=== PATIENT | female | born 1985 | race Caucasian/White ===

== ENCOUNTER → 2019-12-19 | Outpatient (CLI) | payer OTHER ==
[~2019-12-19] MED LIST: AC325T PO; AMIT10TA6 PO; AMIT25TA9 PO; CITA10TA70 PO; CYCL10TA9 PO; DESV50TA PO; FRS325T PO; GABA-488 PO; GEMF600T PO; HYDR-700 PO; HYDR25CA92 PO; IBP600T1 PO; IBUP-30 PO; LISI10TA2 PO; MULT-35 PO; NORG1TAB31 PO; OXYC-12 PO; PREN1TAB39 PO; SUMA100T2 PO; TRM50T PO
--- NOTE | 2019-12-19 11:03 | Diagnostic Imaging Report ---
PROCEDURE: US OB SINGLE FETUS <14 WKS. TECHNIQUE: Multiple real-time grayscale images were obtained over the gravid uterus in various projections. INDICATION: Uncertain dates There are no prior studies available for comparison. There is a gestational sac within the uterus containing a single live fetus. heart motion was noted and a rate of 167 BPM was recorded. The crown-rump length suggests the estimated gestational age is 12 weeks 3 days +/- 1 week. There were no obvious abnormalities identified. However, if more sensitive evaluation of the anatomy is desired, then follow-up exam in 6-8 weeks would be recommended. The amniotic fluid volume is within normal limits. The placenta appears to be developing posteriorly and on the right lateral aspect of the gestational sac. The left ovary was identified and was generally unremarkable. The right ovary could not be visualized. There is no pelvic mass or free fluid collection evident. IMPRESSION: 1. There is a single live fetus at approximately 12 weeks 3 days gestation +/- 1 week. The EDC is 06/29/2020. 2. There are no obvious abnormalities identified. Recommendations as above. 3. There is no pelvic mass or free fluid collection evident. Dictated by: Dictated on workstation # [id number]
== END ==
LOC: RAD 08:57
PROVIDERS: ATTEND Family Medicine
DX: Z36.89 Encounter for other specified antenatal screening (principal); Z3A.12 12 weeks gestation of pregnancy
CPT/HCPCS: 76801

== ENCOUNTER → 2020-02-13 | Outpatient (CLI) | payer OTHER ==
--- NOTE | 2020-02-13 15:33 | Diagnostic Imaging Report ---
INDICATION: survey TECHNIQUE: Multiple real-time grayscale images were obtained over the gravid uterus. COMPARISON: 12/19/2019 FINDINGS: The prior exam of 12/19/2019 noted a single live fetus approximately 12 weeks 3 days gestation. On this exam, the fetus is again visualized. The fetus is in variable presentation. At the end of the exam, the fetus was cephalic however. heart motion was noted and a rate of 149 BPM was recorded. There were no abnormalities noted. The growth parameters are fairly uniform and have progressed as expected since the prior study. The amniotic fluid volume is within normal limits. The placenta is anterior and there is no previa. The cervix was identified and measures 4.1 cm in length. Biometrical measurements are as follows: Biparietal 4.88 cm, age 20 weeks 6 days. Head circumference 17.71 cm, age 20 weeks 2 days. Abdominal circumference 16.15 cm, age 21 weeks 2 days. Femur length 3.01 cm, age 19 weeks 3 days. Sonographic estimate age: 20 weeks 4 days. Sonographic estimated date of delivery: 06/28/2020. Estimated Weight: 348 gm (+/- 51 gm). LMP percentile: 41%. heart rate: 149 beats per minute. number: 1 of 1. IMPRESSION: 1. There is a single live fetus approximately 20 weeks 3 days gestation plus or minus 1 week. The EDC remains 06/29/2020. 2. There were no abnormalities identified. 3. The growth parameters have progressed as expected since the prior exam. Dictated by: Dictated on workstation # [id number]
== END ==
LOC: RAD 13:00
PROVIDERS: ATTEND Family Medicine
DX: Z34.92 Encounter for supervision of normal pregnancy, unspecified, second trimester (principal); Z3A.20 20 weeks gestation of pregnancy
CPT/HCPCS: 76805

== ENCOUNTER 2020-06-23 02:03 | Inpatient (IN) | payer MEDICAID, OTHER ==
[~2020-06-23] VITALS: Ht 157.5 cm; Wt 71.9 kg
[2020-06-23] VITALS (27 sets, daily range): BP systolic 121–170; BP diastolic 63–115
[2020-06-23] MEDS ORDERED: D5 LR IV SOLUTION 1,000 ML IV ONE (02:37)
--- NOTE | 2020-06-23 06:12 | NUR ---
ELLA CHARLTON presented to unit via W/C from ED, accompanied by SO, with c/o INDUCTION. ELLA CHARLTON weighed, gowned, voided, and to bed. EF and TOCO applied, VS taken. ELLA CHARLTON oriented to bed controls, call light, TV, heat, and A/C controls.
[2020-06-23] MEDS ORDERED: OMEP10CA5 PO (06:21)
[2020-06-23] MEDS ORDERED: MINERAL OIL CONCENTRATE 99.9% 15 ML UDC TOP PRN (06:30)
[2020-06-23] MEDS ORDERED: MEPIVACAINE (CARBOCAINE) 2% 50 ML VIAL INJ PRN (06:30)
[2020-06-23] MEDS ORDERED: D5 LR IV SOLUTION 1,000 ML IV SCH (06:30)
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
[2020-06-23 07:14] LABS: BASOPHILS # (AUTO) 0.1 10^3/uL (0.0-0.1); BASOPHILS % (AUTO) 0 % (0-10); EOSINOPHILS # (AUTO) 0.2 10^3/uL (0.0-0.3); EOSINOPHILS % (AUTO) 1 % (0-10); HEMATOCRIT 34 % (35-52); HEMOGLOBIN 10.9 g/dL (11.5-16.0); LYMPHOCYTES # (AUTO) 2.2 10^3/uL (1.0-4.0); LYMPHOCYTES % (AUTO) 13 % (12-44); MEAN CORPUSCULAR HEMOGLOBIN 30 pg (25-34); MEAN CORPUSCULAR HGB CONC 32 g/dL (32-36); MEAN CORPUSCULAR VOLUME 92 fL (80-99); MEAN PLATELET VOLUME 10.1 fL (9.0-12.2); MONOCYTES # (AUTO) 0.9 10^3/uL (0.0-1.0); MONOCYTES % (AUTO) 6 % (0-12); NEUTROPHILS # (AUTO) 13.2 10^3/uL (1.8-7.8); NEUTROPHILS % (AUTO) 78 % (42-75); PLATELET COUNT 324 10^3/uL (130-400)
--- NOTE | 2020-06-23 07:15 | NUR ---
Report received from Edgardo Dye RN.
[2020-06-23 08:27] LABS: BAND NEUTROPHILS 1 %; BASOPHILS % (MANUAL) 0 %; EOSINOPHILS % (MANUAL) 3 %; LYMPHOCYTES % (MANUAL) 17 %; MONOCYTES % (MANUAL) 6 %; NEUTROPHILS % (MANUAL) 73 %
[2020-06-23 08:28] LABS: RBC MORPH NORMAL
[2020-06-23] MEDS ORDERED: OXYTOCIN PRE-MIX DRIP 500 ML IV ONE (08:28)
[2020-06-23] MEDS ORDERED: OXYTOCIN PRE-MIX DRIP 500 ML IV SCH ×3 (08:30→12:45)
[2020-06-23] MEDS: BUTORPHANOL INJ 2 MG/ML (STADOL) VIAL IV PRN ×2 (08:54→10:37)
[2020-06-23] MEDS: CATHETER FLUSH 10 ML SYR IV SCH ×4 (08:55→22:00)
--- NOTE | 2020-06-23 12:31 | OB Labor & Delivery Record ---
L&D History Date of Service Date of Service: Jun 23, 2020 History Expected Date of Delivery: Jun 28, 2020 Gestational Age in Weeks: 39 Hx : 6 Hx Para: 5 Complications Events: Routine care Operative Indications (Cesarea: N/A-Vaginal Delivery Intrapartal Events: None L&D Stage1 Stage One Onset of Labor - Date: Jun 23, 2020 Onset of Labor - Time: 06:39 Monitors and Tracing Monitor Mode: Internal Heart Rate: 125 Monitor Accelerations: Uniform Monitor Decelerations: Variable Station: -2 Service Engine Repairer Variability: Average (6-10) Short Term Variability: Present Presentation: Vertex Vital Signs VS - Last 72 Hours, by Label 06/23/20 06/23/20 06/23/20 06/23/20 06:23 06:46 07:30 08:00 Temp 36.3 36.3 36.8 Pulse 110 110 96 86 Resp 20 20 18 18 B/P (MAP) 134/94 (107) 145/95 (112) 141/86 (104) Pulse Ox 100 100 O2 Delivery Room Air Room Air Room Air Room Air 06/23/20 06/23/20 06/23/20 06/23/20 08:30 08:45 09:00 09:15 Temp 36.5 Pulse 93 100 94 94 Resp 18 18 18 18 B/P (MAP) 121/69 (86) 141/91 (108) 134/73 (93) 129/74 (92) O2 Delivery Room Air Room Air Room Air Room Air 06/23/20 06/23/20 06/23/20 06/23/20 09:30 09:45 10:00 10:15 Pulse 84 88 85 84 Resp 18 18 18 18 B/P (MAP) 122/78 (93) 134/84 (101) 139/72 (94) 128/69 (88) O2 Delivery Room Air Room Air Room Air Room Air 06/23/20 06/23/20 06/23/20 10:30 10:45 11:00 Temp 36.2 Pulse 85 85 96 Resp 18 18 18 B/P (MAP) 140/85 (103) 139/83 (101) 143/101 (115) O2 Delivery Room Air Room Air Room Air Signs of Distress by FHT Signs of Distress No Rupture of Membranes Spontaneous Ruture of Membrane: No Amniotic Membrane Rupture Time: 0639 Amniotic Membrane Fluid Desc.: Meconium Stained Vaginal Bleeding Description: None Induction/Anesthesia Medications stadol 1mg x 2 doses L&D Stage2 Stage Two Stage II Date: Jun 23, 2020 Stage II Time: 12:14 Monitors and Tracing Monitor Mode: Internal Heart Rate: 125 Monitor Accelerations: Uniform Monitor Decelerations: Early Service Engine Repairer Variability: Average (6-10) Short Term Variability: Present Position: Left Occiput Anterior Presentation: Vertex Signs of Distress by FHT Signs of Distress no Cord Descript/Complications Cord Vessel Description: 3 Vessels Delivery Type Infant Delivery Method: Spontaneous Vaginal Anterior Shoulder: Left Episiotomy/Perineal Laceration Laceraction(s)/Extensions: No Condition of Delivery 1 minute Comment: 8 5 minute Comment: 9 Condition of Condition of : Living Exam: No Observed Abnormalities Resuscitation Resuscitation: N/A - Spontaneous Resp L&D Stage3 Stage Three Stage III Date: Jun 23, 2020 Stage III Time: 12:18 Pictocin Pitocin Administration mu/min: 2 Pitocin ml/hr: 2 Pitocin Administration Comment: Pitocin started per protocol. Placenta Delivery Placenta Delivery: Spontaneous Delivery Summary Summary Estimated blood loss (mL): 200 Condition of Delivery Examined: Cervix Examined Post Hemorrhage: No Intervention Required none PERI MANLEY MD Jun 23, 2020 12:31
[2020-06-23] MEDS ORDERED: TETANUS,DIPTH,PERTUSS P/F (BOOSTRIX) 0.5 ML VIAL IM ONE (12:45)
[2020-06-23] MEDS ORDERED: MEASLES,MUMPS,RUBELLA 1 EA INJ SQ ONE (12:45)
[2020-06-23] MEDS ORDERED: WITCH HAZEL(TUCKS) 40 EA JAR TOP PRN (12:45)
[2020-06-23] MEDS ORDERED: BENZOCAINE/MENTHOL (DERMOPLAST) 60 ML CAN TP PRN (12:45)
[2020-06-23] MEDS ORDERED: ACETAMINOPHEN 500 MG TAB (TYLENOL) PO PRN (13:15)
[2020-06-23] MEDS: IBUPROFEN 600 MG (MOTRIN) TAB PO SCH ×2 (13:43→20:24)
--- NOTE | 2020-06-23 14:35 | NUR ---
Fundus firm U/2 with moderate rubra lochia noted. No clots. Pericare completed. Patient up to restroom, + void noted, clean pad and panties applied. Patient transferred to room 311 via wheelchair. Patient oriented to room and plan of care reviewed. Patient verbalizes understanding and questions answered.
[2020-06-23] MEDS ORDERED: ACETAMINOPHEN 500 MG TAB (TYLENOL) PO SCH (18:00)
[2020-06-23] MEDS ORDERED: IBUPROFEN 600 MG (MOTRIN) TAB PO SCH (18:00)
[2020-06-23] MEDS: DOCUSATE SODIUM 100 MG (COLACE) CAP PO SCH (20:24)
[2020-06-24] VITALS: BP 132/77
[2020-06-24] MEDS: IBUPROFEN 600 MG (MOTRIN) TAB PO SCH ×2 (01:52→10:12)
[2020-06-24 04:00] VITALS: BP 141/80
[2020-06-24 05:33] LABS: BASOPHILS % (AUTO) 0 % (0-10); EOSINOPHILS # (AUTO) 0.2 10^3/uL (0.0-0.3); EOSINOPHILS % (AUTO) 1 % (0-10); HEMATOCRIT 30 % (35-52); HEMOGLOBIN 9.6 g/dL (11.5-16.0); LYMPHOCYTES # (AUTO) 2.2 10^3/uL (1.0-4.0); LYMPHOCYTES % (AUTO) 13 % (12-44); MEAN CORPUSCULAR HEMOGLOBIN 29 pg (25-34); MEAN CORPUSCULAR HGB CONC 32 g/dL (32-36); MEAN CORPUSCULAR VOLUME 92 fL (80-99); MEAN PLATELET VOLUME 9.7 fL (9.0-12.2); MONOCYTES # (AUTO) 0.9 10^3/uL (0.0-1.0); MONOCYTES % (AUTO) 5 % (0-12); NEUTROPHILS % (AUTO) 80 % (42-75); PLATELET COUNT 281 10^3/uL (130-400); WHITE BLOOD COUNT 17.6 10^3/uL (4.3-11.0)
--- NOTE | 2020-06-24 06:56 | Discharge Summary ---
Diagnosis/Chief Complaint Date of Admission Jun 23, 2020 at 06:00 Date of Discharge June 24, 2020 Discharge Date: Jun 24, 2020 Discharge Time: 13:00 Admission Diagnosis Admission Diagnosis 1. Intrauterine at 39 weeks gestation 2. Anemiairon deficiency Discharge Diagnosis 1. Intrauterine at 39 weeks gestation 2. Anemiairon deficiency Reason Hospital Visit 35-year-old 6 now term 6 who initially presented to labor and delivery in the morning of June 23, 2020 for induction of labor at 39 weeks 2 days gestation. Her EDC is June 28, 2020. Her care was began in first trimester and essentially unremarkable. Discharge Summary-OBS Procedures 1. Spontaneous vaginal delivery Discharge Physical Examination Allergies: Coded Allergies: No Known Drug Allergies (Unverified , 06/22/12) Vitals & I&Os Vital Signs Date Time Temp Pulse Resp B/P (MAP) Pulse Ox O2 Delivery O2 Flow Rate FiO2 06/24/20 04:00 36.0 84 16 141/80 (100) 98 Room Air General Appearance: No Acute Distress Respiratory: Clear to Auscultation Cardiovascular: Regular Rate Abdominal: Soft (with uterus firm) Hospital Course Was the Problem List Reviewed?: Yes patient was admitted during the morning of June 23, 2020 for induction of labor. She underwent amniotomy with placement of scalp electrode. Later in the morning of was noted there was meconium-stained fluid. Strip remained reactive throughout the course of labor. She did not request epidural. She was given Stadol 1 mg twice during the course of labor for pain relief. Ultimately she went on to completion and delivered a term viable male with Apgars of 8 at 1 minute and 9 at 5 minutes. Following delivery she underwent routine care orders. She had no complications during the remainder of hospital stay. Her hemoglobin day after delivery was 9.6 compared to 10.9 on admission. She was without significant cramping in the morning of June 24, 2020. She was tolerating regular diet. She was eager for home dismissal in the afternoon of June 24, 2020. Pending Labs Laboratory Tests 06/24/20 05:10: White Blood Count 17.6, Red Blood Count 3.26, Hemoglobin 9.6, Hematocrit 30, Mean Corpuscular Volume 92, Mean Corpuscular Hemoglobin 29, Mean Corpuscular Hemoglobin Concent 32, Red Cell Distribution Width 14.0, Platelet Count 281, Mean Platelet Volume 9.7, Immature Granulocyte % (Auto) 1, Neutrophils (%) (Auto) 80, Lymphocytes (%) (Auto) 13, Monocytes (%) (Auto) 5, Eosinophils (%) (Auto) 1, Basophils (%) (Auto) 0, Neutrophils # (Auto) 14.0, Lymphocytes # (Auto) 2.2, Monocytes # (Auto) 0.9, Eosinophils # (Auto) 0.2, Basophils # (Auto) 0.0, Immature Granulocyte # (Auto) 0.2 Discharge Instructions to patient/family Please see electronic discharge instructions given to patient. Discharge Medications Reviewed and agree with Discharge Medication list on patient's Discharge Instruction sheet PERI MANLEY MD Jun 24, 2020 06:56
--- NOTE | 2020-06-24 06:59 | Discharge Inst-Women's Service ---
Discharge Inst-Women's Serv Depart Medication/Instructions New, Converted or Re-Newed RX: Other Instructions May take ibuprofen 200 mg tablets [id number]. May take 2 or 3 ibuprofen every 6 hours as needed for cramps. Problems Reviewed?: Yes Consults/Follow Up Additional Follow Up: Yes (Dr Manley in 6 weeks) Activity Driving Instructions: You May Drive Nothing Inside Vagina: No [place] (for 6 weeks) Diet Discharge Diet: Regular Diet Return to The Hospital For: as below Symptoms to Report to : Bleeding Excessive, Fever Over 101 Degrees F, Vaginal Discharge Foul For Any Problems or Questions: Contact Your Physician PERI MANLEY MD Jun 24, 2020 06:59
[2020-06-24] MEDS: DOCUSATE SODIUM 100 MG (COLACE) CAP PO SCH (10:12)
--- NOTE | 2020-06-24 10:14 | NUR ---
Initial shift assessment completed, see interventions for further.
[2020-06-24 11:00] VITALS: BP 141/100
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
--- NOTE | 2020-06-24 13:26 | NUR ---
dismissal instructions given, verbalizes understanding. reviewed OTC medications and administration schedule. instructed pt to schedule 6 week PP appointment. signature page signed, placed on chart.
--- NOTE | 2020-06-24 15:20 | NUR ---
pt dismissed to private vehicle via w/c with on lap. staff @ side. secured in rear facing car seat. pt stable with no sx's of distress noted.
== END 2020-06-24 15:20 | disposition home or self-care (01) | DRG 807 ==
LOC: LDRP 06:00
PROVIDERS: ADMIT Family Medicine; ATTEND Family Medicine
PROC: 10E0XZZ Delivery of Products of Conception, External Approach (ICD-10-PCS; principal; 2020-06-23)
PROC: 10907ZC Drainage of Amniotic Fluid, Therapeutic from Products of Conception, Via Natural or Artificial Opening (ICD-10-PCS; 2020-06-23)
DX: O99.02 Anemia complicating childbirth (principal); Z37.0 Single live birth; Z3A.39 39 weeks gestation of pregnancy; D50.9 Iron deficiency anemia, unspecified; Z20.822 Contact with and (suspected) exposure to COVID-19
CPT/HCPCS: 36415; 85007; 85025; 85027; 86850; 86900; 86901; 87635

== ENCOUNTER 2021-10-25 06:00 | Inpatient (IN) | payer MEDICAID, OTHER ==
[2021-10-25] VITALS (36 sets, daily range): BP systolic 123–178; BP diastolic 60–115
[~2021-10-25] VITALS: Ht 157.5 cm; Wt 74.5 kg
[~2021-10-25 06:00] MED LIST changes: -AMIT10TA6 PO; +AMT10T PO; -LISI10TA2 PO; +LISI10TA25 PO; +OMEP10CA5 PO
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
[2021-10-25] MEDS ORDERED: DULO30CA49 PO (06:44)
[2021-10-25] MEDS ORDERED: D5 LR IV SOLUTION 1,000 ML IV SCH (06:45)
[2021-10-25] MEDS ORDERED: OXYTOCIN PRE-MIX DRIP 500 ML IV SCH ×2 (06:45→11:45)
[2021-10-25] MEDS ORDERED: MINERAL OIL 30 ML TOP PRN (06:45)
[2021-10-25 07:04] LABS: BASOPHILS % (AUTO) 0 % (0-10); EOSINOPHILS # (AUTO) 0.2 10^3/uL (0.0-0.3); EOSINOPHILS % (AUTO) 2 % (0-10); HEMATOCRIT 37 % (35-52); HEMOGLOBIN 12.4 g/dL (11.5-16.0); LYMPHOCYTES # (AUTO) 2.4 10^3/uL (1.0-4.0); LYMPHOCYTES % (AUTO) 20 % (12-44); MEAN CORPUSCULAR HEMOGLOBIN 32 pg (25-34); MEAN CORPUSCULAR HGB CONC 34 g/dL (32-36); MEAN CORPUSCULAR VOLUME 96 fL (80-99); MEAN PLATELET VOLUME 10.2 fL (9.0-12.2); MONOCYTES # (AUTO) 0.6 10^3/uL (0.0-1.0); MONOCYTES % (AUTO) 5 % (0-12); NEUTROPHILS # (AUTO) 8.7 10^3/uL (1.8-7.8); NEUTROPHILS % (AUTO) 72 % (42-75); PLATELET COUNT 299 10^3/uL (130-400); WHITE BLOOD COUNT 12.1 10^3/uL (4.3-11.0)
[2021-10-25] MEDS ORDERED: fentaNYL 2 mcg/ml BUPIVA 0.125 100 ML ONE (07:51)
[2021-10-25] MEDS ORDERED: BUTORPHANOL INJ 2 MG/ML (STADOL) VIAL IV ONE (08:15)
[2021-10-25] MEDS ORDERED: BUPIVACAINE 0.25% 10 ML (SENSORCAINE) VIAL ONE (08:38)
[2021-10-25] MEDS ORDERED: fentaNYL INJ 100 MCG/2 ML AMP ONE (08:38)
[2021-10-25] MEDS ORDERED: ONDANSETRON 4 MG/2 ML (SDV) Z0FRAN IV PRN (09:15)
[2021-10-25] MEDS ORDERED: LACTATED RINGERS 1,000 ML IV ONE ×2 (09:15)
[2021-10-25] MEDS ORDERED: fentaNYL 2 mcg/ml BUPIVA 0.125 100 ML EPI PRN (09:15)
[2021-10-25] MEDS ORDERED: EPIDURAL (fentaNYL 2 MCG/ML BUPIVA 0.125%)100 ML BAG EPI PRN (09:15)
[2021-10-25] MEDS ORDERED: NALOXONE 0.4 MG/ML 1 ML (NARCAN) VIAL IV PRN ×2 (09:15→11:45)
[2021-10-25] MEDS ORDERED: fentaNYL INJ 100 MCG/2 ML AMP INJ ONE (09:15)
[2021-10-25] MEDS ORDERED: MEPIVACAINE (CARBOCAINE) 2% 50 ML VIAL ONE (10:42)
[2021-10-25] MEDS ORDERED: BENZOCAINE/MENTHOL (DERMOPLAST) 56 ML CAN TP PRN (11:45)
[2021-10-25] MEDS ORDERED: WITCH HAZEL(TUCKS) 40 EA JAR TOP PRN (11:45)
[2021-10-25] MEDS ORDERED: MEASLES,MUMPS,RUBELLA 1 EA INJ SQ ONE (11:45)
[2021-10-25] MEDS ORDERED: TETANUS,DIPTH,PERTUSS P/F (BOOSTRIX) 0.5 ML VIAL IM ONE (11:45)
--- NOTE | 2021-10-25 11:45 | OB Labor & Delivery Record ---
L&D History Date of Service Date of Service: Oct 25, 2021 History Expected Date of Delivery: Oct 31, 2021 Gestational Age in Weeks: 39 Hx : 7 Hx Para: 7 Complications Events: Routine care Operative Indications (Cesarea: N/A-Vaginal Delivery Intrapartal Events: None L&D Stage1 Stage One Onset of Labor - Date: Oct 25, 2021 Onset of Labor - Time: 06:39 Monitors and Tracing Monitor Mode: Internal Heart Rate: 120 Monitor Accelerations: Uniform Monitor Decelerations: None Station: -3 Prison Variability: Average (6-10) Short Term Variability: Present Presentation: Vertex Vital Signs VS - Last 72 Hours, by Label 10/25/21 10/25/21 10/25/21 10/25/21 06:50 06:50 07:50 08:05 Temp 36.6 36.6 Pulse 83 83 75 85 Resp 20 20 20 20 B/P (MAP) 146/84 (104) 133/82 (99) 140/79 (99) Pulse Ox 98 98 O2 Delivery Room Air Room Air Room Air Room Air 10/25/21 10/25/21 10/25/21 10/25/21 08:20 08:35 08:48 08:53 Pulse 85 100 94 89 Resp 20 20 20 20 B/P (MAP) 128/73 (91) 167/91 (116) 151/84 (106) 142/85 (104) Pulse Ox 98 99 O2 Delivery Room Air Room Air Room Air Room Air 10/25/21 10/25/21 10/25/21 10/25/21 08:56 08:59 09:00 09:03 Pulse 93 85 89 84 Resp 20 20 20 20 B/P (MAP) 143/92 (109) 142/78 (99) 156/83 (107) 159/70 (99) Pulse Ox 99 98 98 98 O2 Delivery Room Air Room Air Room Air Room Air 10/25/21 10/25/21 10/25/21 10/25/21 09:06 09:08 09:11 09:14 Pulse 89 90 90 81 Resp 20 20 20 20 B/P (MAP) 148/74 (98) 130/66 (87) 139/98 (112) 149/103 (118) Pulse Ox 98 98 98 98 O2 Delivery Room Air Room Air Room Air Room Air 10/25/21 10/25/21 10/25/21 10/25/21 09:17 09:22 09:35 09:38 Temp 36.0 Pulse 80 80 77 87 Resp 20 20 20 20 B/P (MAP) 143/76 (98) 144/86 (105) 136/84 (101) 137/95 (109) Pulse Ox 98 97 97 98 O2 Delivery Room Air Room Air Room Air Room Air 10/25/21 10/25/21 10/25/21 10/25/21 09:45 09:50 09:55 10:00 Pulse 81 76 75 76 Resp 20 20 20 20 B/P (MAP) 136/92 (107) 158/87 (110) 156/75 (102) 141/92 (108) Pulse Ox 99 98 98 98 O2 Delivery Room Air Room Air Room Air Room Air Signs of Distress by FHT Signs of Distress no Rupture of Membranes Spontaneous Ruture of Membrane: No Amniotic Membrane Rupture Time: 0639 Amniotic Membrane Fluid Desc.: Meconium Stained Vaginal Bleeding Description: None Induction/Anesthesia Epidural Cath Placement - Time: 850 L&D Stage2 Stage Two Stage II Date: Oct 25, 2021 Stage II Time: 11:01 Monitors and Tracing Monitor Mode: Internal Heart Rate: 120 Monitor Accelerations: Uniform Monitor Decelerations: None Painter Maintenance Variability: Average (6-10) Short Term Variability: Present Position: Left Occiput Anterior Presentation: Vertex Signs of Distress by FHT Signs of Distress no Cord Descript/Complications Cord Vessel Description: 3 Vessels Delivery Type Infant Delivery Method: Spontaneous Vaginal Anterior Shoulder: Left Episiotomy/Perineal Laceration Laceraction(s)/Extensions: No Condition of Delivery 1 minute Comment: 8 5 minute Comment: 9 Condition of Condition of Infant: Living Exam: No Observed Abnormalities Resuscitation Resuscitation: N/A - Spontaneous Resp L&D Stage3 Stage Three Stage III Date: Oct 25, 2021 Stage III Time: 11:05 Pictocin Pitocin Administration mu/min: 2 Pitocin ml/hr: 2 Placenta Delivery Placenta Delivery: Spontaneous Delivery Summary Summary Estimated blood loss (mL): 150 Condition of Delivery Examined: Cervix Examined Post Hemorrhage: No Intervention Required none PERI MANLEY MD Oct 25, 2021 11:45
[2021-10-25] MEDS ORDERED: CATHETER FLUSH 10 ML SYR IV SCH ×2 (14:00)
[2021-10-25] MEDS: IBUPROFEN 600 MG (MOTRIN) TAB PO SCH ×2 (14:09→20:28)
[2021-10-25] MEDS: ACETAMINOPHEN 500 MG TAB (TYLENOL) PO SCH ×2 (14:09→20:28)
[2021-10-25] MEDS: DOCUSATE SODIUM 100 MG (COLACE) CAP PO SCH (20:28)
[2021-10-26 03:45] VITALS: BP 127/81
[2021-10-26] MEDS: IBUPROFEN 600 MG (MOTRIN) TAB PO SCH ×2 (03:45→11:23)
[2021-10-26] MEDS: ACETAMINOPHEN 500 MG TAB (TYLENOL) PO SCH ×2 (03:45→11:24)
[2021-10-26 06:24] LABS: BASOPHILS % (AUTO) 0 % (0-10); EOSINOPHILS # (AUTO) 0.3 10^3/uL (0.0-0.3); EOSINOPHILS % (AUTO) 2 % (0-10); HEMATOCRIT 35 % (35-52); HEMOGLOBIN 11.6 g/dL (11.5-16.0); LYMPHOCYTES # (AUTO) 2.9 10^3/uL (1.0-4.0); LYMPHOCYTES % (AUTO) 23 % (12-44); MEAN CORPUSCULAR HEMOGLOBIN 32 pg (25-34); MEAN CORPUSCULAR HGB CONC 33 g/dL (32-36); MEAN CORPUSCULAR VOLUME 98 fL (80-99); MEAN PLATELET VOLUME 10.5 fL (9.0-12.2); MONOCYTES # (AUTO) 0.7 10^3/uL (0.0-1.0); MONOCYTES % (AUTO) 5 % (0-12); NEUTROPHILS # (AUTO) 8.4 10^3/uL (1.8-7.8); NEUTROPHILS % (AUTO) 68 % (42-75); PLATELET COUNT 241 10^3/uL (130-400); WHITE BLOOD COUNT 12.4 10^3/uL (4.3-11.0)
[2021-10-26] MEDS ORDERED: OMEP10CA5 PO (07:20)
[2021-10-26] MEDS ORDERED: IBUP-844 PO (07:20)
[2021-10-26] MEDS: DOCUSATE SODIUM 100 MG (COLACE) CAP PO SCH (11:23)
[2021-10-26 11:26] VITALS: BP 128/82
--- NOTE | 2021-10-26 12:43 | Discharge Inst-Women's Service ---
Discharge Inst-Women's Serv Depart Medication/Instructions New, Converted or Re-Newed RX: Transmitted to Pharmacy ([facility]) Problems Reviewed?: Yes Consults/Follow Up Additional Follow Up: Yes (Dr Manley at [facility] in 6 weeks) Activity Driving Instructions: You May Drive Nothing Inside Vagina: No [place] (for 6 weeks.) Diet Discharge Diet: Regular Diet Return to The Hospital For: as below Symptoms to Report to : Bleeding Excessive, Pain Increased, Vaginal Discharge Foul For Any Problems or Questions: Contact Your Physician PERI MANLEY MD Oct 26, 2021 12:43
--- NOTE | 2021-10-26 12:44 | Discharge Summary ---
Diagnosis/Chief Complaint Date of Admission Oct 25, 2021 at 06:20 Date of Discharge Admission Diagnosis Admission Diagnosis 1. Intrauterine at 39 week gestation Discharge Diagnosis 1. Intrauterine at 39 week gestation Chief Complaint/HPI Chief Complaint/HPI 36-year-old 7 term 7 who initially presented to labor and delivery during morning of October 25, 2021 for induction of labor 39 weeks gestation. Her GBS status was negative. She had essentially unremarkable care Discharge Summary-OBS Procedures 1. Epidural per anesthesia 2. Spontaneous vaginal delivery Discharge Physical Examination Allergies: Coded Allergies: No Known Drug Allergies (Unverified , 06/22/12) Vitals & I&Os Intake and Output 10/26/21 00:00 Intake Total 500 ml Balance 500 ml Vital Sign - Last 12Hours Date Time Temp Pulse Resp B/P (MAP) Pulse Ox O2 Delivery O2 Flow Rate FiO2 10/26/21 11:26 36.2 98 18 128/82 (97) 98 Room Air General Appearance: Alert, Oriented X3 Respiratory: Clear to Auscultation Cardiovascular: Regular Rate Abdominal: Soft (With your firm) Hospital Course Was the Problem List Reviewed?: Yes Following should she underwent antepartum care orders. She underwent epidural per anesthesia and tolerated well. Her labor started with rupture of membranes. Low-dose Pitocin oxygen required. Ultimately she went on to completion and d elivered over an intact perineum a term viable male. See labor delivery and the full details. Following delivery patient underwent routine care orders. She had no complications during the remainder of hospital stay. Her hemoglobin in the [facility] of October 26 was noted to be 11.6 and this was compared to admission of 12.4. nutrition services aide was also during the day due to living essentially alone other than some time support from her boyfriend. She released to home and follow-up in 6 weeks at [facility] with myself. Her discharge medications included omeprazole, duloxetine as well as ibuprofen Labs Laboratory Tests 10/26/21 05:41: White Blood Count 12.4H, Red Blood Count 3.61L, Hemoglobin 11.6, Hematocrit 35, Mean Corpuscular Volume 98, Mean Corpuscular Hemoglobin 32, Mean Corpuscular Hemoglobin Concent 33, Red Cell Distribution Width 13.5, Platelet Count 241, Mean Platelet Volume 10.5, Immature Granulocyte % (Auto) 1, Neutrophils (%) (Auto) 68, Lymphocytes (%) (Auto) 23, Monocytes (%) (Auto) 5, Eosinophils (%) (Auto) 2, Basophils (%) (Auto) 0, Neutrophils # (Auto) 8.4H, Lymphocytes # (Auto) 2.9, Monocytes # (Auto) 0.7, Eosinophils # (Auto) 0.3, Basophils # (Auto) 0.0, Immature Granulocyte # (Auto) 0.1 Discharge Instructions to patient/family Please see electronic discharge instructions given to patient. Discharge Medications Reviewed and agree with Discharge Medication list on patient's Discharge Instruction sheet PERI MANLEY MD Oct 26, 2021 12:44
== END 2021-10-26 13:45 | disposition home or self-care (01) | DRG 807 ==
LOC: LDRP 06:20
PROVIDERS: ADMIT Family Medicine; ATTEND Family Medicine
PROC: 10E0XZZ Delivery of Products of Conception, External Approach (ICD-10-PCS; principal; 2021-10-25)
PROC: 10907ZC Drainage of Amniotic Fluid, Therapeutic from Products of Conception, Via Natural or Artificial Opening (ICD-10-PCS; 2021-10-25)
DX: O16.4 Unspecified maternal hypertension, complicating childbirth (principal); Z37.0 Single live birth; Z3A.39 39 weeks gestation of pregnancy; O99.284 Endocrine, nutritional and metabolic diseases complicating childbirth; E78.5 Hyperlipidemia, unspecified; O99.344 Other mental disorders complicating childbirth; F43.10 Post-traumatic stress disorder, unspecified; F32.A Depression, unspecified; F41.9 Anxiety disorder, unspecified; G89.29 Other chronic pain; M54.9 Dorsalgia, unspecified; M25.559 Pain in unspecified hip; O77.0 Labor and delivery complicated by meconium in amniotic fluid
CPT/HCPCS: 36415; 85025; 86850; 86900; 86901